=== PATIENT | female | born 1955 | race Caucasian/White ===

== ENCOUNTER 2018-07-27 14:18 | Outpatient (REF) | payer MEDICARE, SELFPAY ==
[2018-07-27 21:04] LABS: Abs Immature Grans 0.01 k/cumm (0.0-0.09); Absolute Basophil Count 0.08 k/cumm (0.0-0.2); Absolute Eosinophil Count 0.08 k/cumm (0.0-0.7); Absolute Monocyte Count 0.58 k/cumm (0.11-0.7); Absolute Neutrophil Count 5.53 k/cumm (1.2-6.7); Basophils % 0.9; Eosinophils % 0.9; HCT 46.6 % (36.0-46.0); HGB 15.9 g/dL (12.0-15.5); Immature Grans % 0.1; Lymphocytes % 29.3; Mean Corp. HGB Concentration 34.1 g/dL (32.0-36.0); Mean Corpuscular Hemoglobin 29.8 pg (27.0-33.0); Mean Corpuscular Volume 87.3 fL (80-95); Mean Platelet Volume 9.8 fL (8.0-11.0); Monocytes % 6.5; Neutrophils % 62.3; Platelet Count 432 x1000/uL (130-400); RBC 5.34 m/cumm (4.00-5.20); RBC Distribution Width 14.8 % (11.7-14.6); White Blood Cell Count 8.88 k/cumm (4.4-10.8)
[2018-07-27 21:48] LABS: ALT 24 U/L (12-78); AST 14 U/L (15-37); Albumin 4.2 g/dL (3.4-5.0); Alkaline Phosphatase 94 U/L (46-116); Anion Gap 9.9 mmol/L (3-11); BUN 8 mg/dL (7-18); Bilirubin, Total 0.2 mg/dL (0.2-1.0); C-Reactive Protein 0.32 mg/dL (0.0-0.3); CO2 26.1 mmol/L (21.0-32.0); CREATININE 0.74 mg/dL (0.55-1.02); Calcium 9.2 mg/dL (8.5-10.1); Chloride 101 mmol/L (98-107); Glucose 98 mg/dL (70-100); Potassium 4.4 mmol/L (3.5-5.1); Sodium 137 mmol/L (136-145); TSH 1.41 uIU/mL (0.358-3.74); Total Protein 7.5 g/dL (6.4-8.2)
[2018-07-27 23:02] LABS: ESR 14 MM/HR (0-30)
[2018-07-29 08:38] LABS: Cyclic Citrullinated Peptide 4.9 U/mL (<5.0)
[2018-07-29 08:45] LABS: Rheumatoid Factor 13 IU/mL (<12.5)
== END 2018-07-27 14:38 ==
LOC: NCHCN 14:18
PROVIDERS: PCP Nurse Practitioner Family; Visit Provider Nurse Practitioner Family
DX: R53.83 Other fatigue (principal); M25.649 Stiffness of unspecified hand, not elsewhere classified
CPT/HCPCS: 80053; 85652; 86200; 84443; 85025; 86140; 86431

== ENCOUNTER 2018-07-28 13:00 | Outpatient (CLI) | payer MEDICARE, MEDICAID, SELFPAY ==
--- NOTE | 2018-07-28 13:27 | DI.RAD_ITS ---
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 RHEUMATOID ARTHRITIS ARTHRITIC SERIES: Two views. No priors. In the right wrist, the articular surfaces appear well maintained. The metacarpophalangeal joints appear unremarkable. No joint space narrowing, periarticular osteopenia or erosions are seen. The interphalangeal joints are well maintained with no subchondral sclerosis or cyst formation. No soft tissue calcifications are seen. No lytic or sclerotic lesions are appreciated. In the left hand, the joint spaces in the wrist are well maintained. The metacarpophalangeal joints are unremarkable without evidence of erosion, periarticular osteopenia or joint space narrowing. The interphalangeal joints are all well maintained. No evidence of joint space narrowing, erosive changes or osteophytosis is present. No soft tissue calcifications are seen. No suspicious lytic or sclerotic lesions are identified. The bones are normally mineralized. IMPRESSION: Unremarkable hands.
== END 2018-07-28 13:20 ==
PROVIDERS: PCP Nurse Practitioner Family; Visit Provider Nurse Practitioner Family
DX: M25.641 Stiffness of right hand, not elsewhere classified (principal); M25.642 Stiffness of left hand, not elsewhere classified; M79.641 Pain in right hand; M79.642 Pain in left hand; M62.81 Muscle weakness (generalized)
CPT/HCPCS: 73120

== ENCOUNTER 2018-08-07 10:48 | Outpatient (REF) | payer MEDICARE, MEDICAID, SELFPAY ==
[2018-08-07 19:06] LABS: Cholesterol 265 mg/dL (50-200); Glucose 107 mg/dL (70-100); HDL Cholesterol 42 mg/dL (40-60); LDL CHOLESTEROL 175 mg/dL (<100); Triglyceride 228 mg/dL (30-150)
== END 2018-08-07 11:08 ==
LOC: NCHCN 10:48
PROVIDERS: PCP Nurse Practitioner Family; Visit Provider Nurse Practitioner Family
DX: R73.09 Other abnormal glucose (principal); E78.89 Other lipoprotein metabolism disorders
CPT/HCPCS: 80061; 82947; 83721

== ENCOUNTER 2018-09-17 12:37 | Outpatient (REF) | payer MEDICARE, MEDICAID, SELFPAY ==
[2018-09-17 21:33] LABS: ALT 26 U/L (12-78); AST 13 U/L (15-37); HDL Cholesterol 46 mg/dL (40-60); LDL CHOLESTEROL 72 mg/dL (<100)
[2018-09-17 21:49] LABS: Creatine Kinase 83 U/L (26-192)
== END 2018-09-17 12:57 ==
LOC: NCHCN 12:37
PROVIDERS: PCP Nurse Practitioner Family; Visit Provider Nurse Practitioner Family
DX: E78.5 Hyperlipidemia, unspecified (principal)
CPT/HCPCS: 82550; 83721; 83718; 84450; 84460

== ENCOUNTER 2019-09-02 09:17 | Outpatient (REF) | payer MEDICARE, MEDICAID, SELFPAY ==
[2019-09-02 19:19] LABS: ALT 33 U/L (14-59); AST 18 U/L (15-37); Calculated LDL 97 mg/dL (<100); Cholesterol 174 mg/dL (<200); Glucose 109 mg/dL (74-106); HDL Cholesterol 45 mg/dL (40-60); Triglyceride 162 mg/dL (<150)
[2019-09-02 20:11] LABS: Creatine Kinase 90 U/L (26-192)
== END 2019-09-02 09:37 ==
LOC: NCHCN 09:17
PROVIDERS: PCP Nurse Practitioner Family; Visit Provider Nurse Practitioner Family
DX: E78.5 Hyperlipidemia, unspecified (principal); J45.20 Mild intermittent asthma, uncomplicated
CPT/HCPCS: 80061; 82550; 82947; 84450; 84460

== ENCOUNTER 2020-08-28 10:24 | Outpatient (REF) | payer MEDICARE, MEDICAID, SELFPAY ==
[2020-08-28 16:44] LABS: ALT 32 U/L (14-59); AST 16 U/L (15-37); Anion Gap 9.6 mmol/L (3-11); BUN 8 mg/dL (7-18); CO2 27.4 mmol/L (21.0-32.0); CREATININE 0.9 mg/dL (0.55-1.02); Calcium 9.3 mg/dL (8.5-10.1); Calculated LDL 68 mg/dL (<100); Chloride 103 mmol/L (98-107); Cholesterol 140 mg/dL (<200); Glucose 112 mg/dL (74-106); HDL Cholesterol 36 mg/dL (40-60); Potassium 4.3 mmol/L (3.5-5.1); Sodium 140 mmol/L (136-145); Triglyceride 181 mg/dL (<150)
[2020-08-28 17:24] LABS: Creatine Kinase 103 U/L (26-192)
== END 2020-08-28 10:25 | disposition home or self-care (01) ==
LOC: NCHCN 10:24
PROVIDERS: PCP Nurse Practitioner Family; Visit Provider Nurse Practitioner Family
DX: E78.5 Hyperlipidemia, unspecified (principal)
CPT/HCPCS: 80048; 80061; 82550; 84450; 84460

== ENCOUNTER 2021-09-03 18:54 | Outpatient (REF) | payer MEDICARE, MEDICAID, SELFPAY ==
[2021-09-03 15:48] LABS: Hemoglobin A1C 5.9 % (<5.7)
[2021-09-03 16:02] LABS: ALT 30 U/L (14-59); AST 16 U/L (15-37); BUN 8 mg/dL (7-18); CREATININE 0.9 mg/dL (0.55-1.02); Calcium 8.9 mg/dL (8.5-10.1); Calculated LDL 75 mg/dL (<100); Chloride 104 mmol/L (98-107); Cholesterol 145 mg/dL (<200); Glucose 109 mg/dL (74-106); HDL Cholesterol 40 mg/dL (40-60); Potassium 4.3 mmol/L (3.5-5.1); Sodium 141 mmol/L (136-145); Triglyceride 150 mg/dL (<150)
[2021-09-03 16:57] LABS: Creatine Kinase 86 U/L (26-192)
== END 2021-09-03 18:55 | disposition home or self-care (01) ==
LOC: NCHCN 18:54
PROVIDERS: PCP Nurse Practitioner Family; Visit Provider Nurse Practitioner Family
DX: E78.5 Hyperlipidemia, unspecified (principal); R73.9 Hyperglycemia, unspecified; F17.200 Nicotine dependence, unspecified, uncomplicated; J45.20 Mild intermittent asthma, uncomplicated
CPT/HCPCS: 80048; 80061; 82550; 83036; 84450; 84460

== ENCOUNTER 2022-09-02 13:13 | Outpatient (REF) | payer MEDICARE, MEDICAID, SELFPAY ==
[2022-09-02 17:23] LABS: Hemoglobin A1C 6.1 % (<5.7)
[2022-09-02 17:42] LABS: ALT 32 U/L (14-59); AST 16 U/L (15-37); Albumin 3.9 g/dL (3.4-5.0); Alkaline Phosphatase 123 U/L (46-116); Anion Gap 8.3 mmol/L (3-11); BUN 7 mg/dL (7-18); Bilirubin, Total 0.3 mg/dL (0.2-1.0); CO2 29.7 mmol/L (21.0-32.0); Calcium 9.4 mg/dL (8.5-10.1); Chloride 103 mmol/L (98-107); Estimated GFR 62.52 (mL/min/1.73m2); Glucose 107 mg/dL (74-106); HDL Cholesterol 42 mg/dL (40-60); LDL CHOLESTEROL 70 mg/dL (<100); Potassium 4.2 mmol/L (3.5-5.1); Sodium 141 mmol/L (136-145); Total Protein 7.7 g/dL (6.4-8.2)
[2022-09-02 17:57] LABS: Creatine Kinase 92 U/L (26-192)
== END 2022-09-02 13:14 | disposition home or self-care (01) ==
LOC: NCHCN 13:13
PROVIDERS: PCP Nurse Practitioner Family; Visit Provider Nurse Practitioner Family
DX: E78.5 Hyperlipidemia, unspecified (principal); R73.03 Prediabetes
CPT/HCPCS: 80053; 82550; 83721; 83036; 83718

== ENCOUNTER 2023-09-08 10:39 | Outpatient (REF) | payer MEDICARE, MEDICAID, SELFPAY ==
[2023-09-08 15:49] LABS: Hemoglobin A1C 6.2 % (<5.7)
[2023-09-08 16:13] LABS: ALT 25 U/L (14-59); AST 12 U/L (15-37); Albumin 3.8 g/dL (3.4-5.0); Alkaline Phosphatase 122 U/L (46-116); Anion Gap 6.4 mmol/L (3-11); BUN 10 mg/dL (7-18); Bilirubin, Total 0.4 mg/dL (0.2-1.0); CO2 28.6 mmol/L (21.0-32.0); CREATININE 0.9 mg/dL (0.55-1.02); Calcium 9.5 mg/dL (8.5-10.1); Chloride 104 mmol/L (98-107); Estimated GFR 70.51 (mL/min/1.73m2); Glucose 115 mg/dL (74-106); HDL Cholesterol 44 mg/dL (40-60); LDL CHOLESTEROL 63 mg/dL (<100); Potassium 4.3 mmol/L (3.5-5.1); Sodium 139 mmol/L (136-145); Total Protein 7.5 g/dL (6.4-8.2)
[2023-09-08 16:46] LABS: Creatine Kinase 66 U/L (26-192)
== END 2023-09-08 10:40 | disposition home or self-care (01) ==
LOC: NCHCN 10:39
PROVIDERS: PCP Nurse Practitioner Family; Visit Provider Nurse Practitioner Family
DX: E78.5 Hyperlipidemia, unspecified (principal); R73.03 Prediabetes
CPT/HCPCS: 80053; 82550; 83721; 83036; 83718

== ENCOUNTER 2024-09-07 15:20 | Outpatient (REF) | payer MEDICARE, MEDICAID, SELFPAY ==
[2024-09-07 16:38] LABS: Hemoglobin A1C 5.9 % (<5.7)
[2024-09-07 17:09] LABS: ALT 24 U/L (14-59); AST 14 U/L (15-37); Albumin 3.9 g/dL (3.4-5.0); Alkaline Phosphatase 112 U/L (46-116); Anion Gap 6.1 mmol/L (3-11); BUN 11 mg/dL (7-18); Bilirubin, Total 0.4 mg/dL (0.2-1.0); CO2 28.9 mmol/L (21.0-32.0); CREATININE 0.8 mg/dL (0.55-1.02); Calcium 9.6 mg/dL (8.5-10.1); Calculated LDL 54 mg/dL (<100); Chloride 104 mmol/L (98-107); Cholesterol 127 mg/dL (<200); Estimated GFR 80.71 (mL/min/1.73m2); Glucose 101 mg/dL (74-106); HDL Cholesterol 45 mg/dL (>or=50); Potassium 4.5 mmol/L (3.5-5.1); Sodium 139 mmol/L (136-145); Triglyceride 144 mg/dL (<150)
== END 2024-09-07 15:21 | disposition home or self-care (01) ==
LOC: NCHCN 15:20
PROVIDERS: Visit Provider Physician Assistant Medical
DX: E78.5 Hyperlipidemia, unspecified (principal); R73.03 Prediabetes
CPT/HCPCS: 80053; 80061; 83036